=== PATIENT | female | born 1995 | race Caucasian/White ===

== ENCOUNTER 2021-09-12 15:24 | Observation (INO) ==
[2021-09-12] MEDS ORDERED: LACTATED RINGERS 1,000 ML IV SCH (17:00)
[2021-09-12] MEDS ORDERED: PROMETHAZINE 25 MG/1 ML VIAL IM PRN (17:13)
[2021-09-12 17:41] LABS: Basophils % 0.4 % (0.0-0.8); Eosinophils % 0.7 % (0.00-10.9); Hematocrit 38.4 VOL% (35.7-47.0); Hemoglobin 13.7 GM/DL (12.0-16.0); Immature Granulocytes % 0.9 %; Immature Granulocytes Absolute 0.05 #; Lymphocytes # 1.1 10*3/uL (1.4-4.0); Lymphocytes % 19.9 % (21.3-54.2); Mean Corpuscular HGB Conc 35.7 GM/DL (32-36); Mean Corpuscular Volume 86.7 FL (87-102); Mean Platelet Volume 9.9 FL (9.6-12.0); Monocytes % 6.3 % (1.7-12.7); Neutrophils % 71.8 % (38.7-73.9); Platelet Count 208 T/CUMM (130-400); Red Blood Count 4.43 MC/CUMM (3.8-5.5); Red Cell Distribution Width 11.1 % (9.3-17.3); White Blood Count 5.7 T/CUMM (4-12)
[2021-09-12] MEDS: METOCLOPRAMIDE 10 MG/2 ML VIAL IV SCH (17:49)
[2021-09-12 18:00] LABS: Albumin 3.8 G/DL (3.4-5.0); Bilirubin,Total 1.1 MG/DL (0.20-1.00); Osmolality,Calculated 266.1 MOS/KG (273-304); Potassium 3.6 MMOL/L (3.5-5.1)
[2021-09-12] MEDS ORDERED: MULTIVITAMIN IV ONE (18:00)
[2021-09-12] MEDS ORDERED: LACTATED RINGERS IV ONE (18:00)
[2021-09-12] MEDS ORDERED: DEXTROSE IV ONE (18:00)
[2021-09-13] MEDS ORDERED: SCOPOLAMINE 1.5 MG PATCH TRANSDERM SCH (04:00)
[2021-09-13] MEDS: METOCLOPRAMIDE 10 MG/2 ML VIAL IV SCH (07:47)
[2021-09-13 12:09] VITALS: BP 118/63
== END 2021-09-13 10:30 | disposition home or self-care (01) ==
LOC: N.OB
PROVIDERS: ADMIT Obstetrics & Gynecology; ATTEND Obstetrics & Gynecology

== ENCOUNTER → 2021-09-18 10:30 | Observation (INO) ==
[2021-09-18 08:41] VITALS: BP 117/52
[~2021-09-18 10:30] MED LIST: ACETAMINOPHEN 325 MG TABLET PO PRN; BISACODYL 10 MG SUPP RECTAL PRN; DOCUSATE SODIUM 100 MG CAPSULE PO SCH; HYDROCORTISONE 2.5% RECTAL CREAM 30 GM TUBE TOP PRN; LACTATED RINGERS 1,000 ML IV SCH; WITCH HAZEL PADS 100/JAR TOP PRN
== END | disposition home or self-care (01) ==
LOC: N.OB
PROVIDERS: ADMIT Obstetrics & Gynecology; ATTEND Obstetrics & Gynecology

== ENCOUNTER 2021-10-03 13:20 | Observation (INO) ==
[2021-10-03] MEDS ORDERED: LACTATED RINGERS 1,000 ML IV ONE (13:43)
[2021-10-03] MEDS ORDERED: ONDANSETRON 4 MG/2 ML VIAL IV PRN (13:44)
[2021-10-03] MEDS: LACTATED RINGERS 1,000 ML IV SCH ×2 (14:10→15:26)
[2021-10-03 22:49] VITALS: BP 93/49
== END 2021-10-03 20:03 | disposition home or self-care (01) ==
LOC: N.OB
PROVIDERS: ADMIT Obstetrics & Gynecology; ATTEND Obstetrics & Gynecology

== ENCOUNTER 2021-10-10 09:28 | Observation (INO) ==
[2021-10-10] MEDS: ONDANSETRON 4 MG/2 ML VIAL IV PRN ×2 (14:29→20:10)
[2021-10-10] MEDS: DEXTROSE 5% LACTATED RINGERS 1,000 ML IV SCH ×2 (18:16→18:54)
[2021-10-10] MEDS: METOCLOPRAMIDE 10 MG/2 ML VIAL IV SCH ×2 (18:54→23:36)
[2021-10-10] MEDS: PANTOPRAZOLE 40 MG VIAL IV SCH (20:36)
[2021-10-10] MEDS ORDERED: methylPREDNISolone SOD SUC 125 MG/2 ML VIAL IV ONE (21:53)
[2021-10-10] MEDS ORDERED: MULTIVITAMIN IV SCH (22:30)
[2021-10-10] MEDS ORDERED: DEXTROSE IV SCH (22:30)
[2021-10-10] MEDS ORDERED: LACTATED RINGERS IV SCH (22:30)
[2021-10-11] MEDS: ONDANSETRON 4 MG/2 ML VIAL IV PRN ×6 (00:12→21:30)
[2021-10-11] MEDS: METOCLOPRAMIDE 10 MG/2 ML VIAL IV SCH (02:19)
[2021-10-11] MEDS ORDERED: ALUMINUM/MAGNES/SIMETH MAX STR 30 ML UDCUP PO PRN (02:25)
[2021-10-11] MEDS: DEXTROSE 5% LACTATED RINGERS 1,000 ML IV SCH ×3 (02:53→12:10)
[2021-10-11 05:30] LABS: Hematocrit 33.6 VOL% (35.7-47.0); Hemoglobin 12.2 GM/DL (12.0-16.0); Immature Granulocytes % 1.5 %; Immature Granulocytes Absolute 0.05 #; Lymphocytes # 0.5 10*3/uL (1.4-4.0); Lymphocytes % 13.6 % (21.3-54.2); Mean Corpuscular HGB Conc 36.3 GM/DL (32-36); Mean Corpuscular Volume 84.6 FL (87-102); Mean Platelet Volume 10.5 FL (9.6-12.0); Monocytes % 2.7 % (1.7-12.7); Neutrophils % 82.2 % (38.7-73.9); Platelet Count 193 T/CUMM (130-400); Red Blood Count 3.97 MC/CUMM (3.8-5.5); Red Cell Distribution Width 11.3 % (9.3-17.3); White Blood Count 3.4 T/CUMM (4-12)
[2021-10-11 05:38] LABS: Bilirubin,Total 0.7 MG/DL (0.20-1.00); Calcium 8.6 MG/DL (8.5-10.1); Osmolality,Calculated 274.8 MOS/KG (273-304); Potassium 3.2 MMOL/L (3.5-5.1); Total Protein 6.2 G/DL (6.4-8.2)
[2021-10-11] MEDS: POTASSIUM CHLORIDE 20 MEQ TABLET PO PRN ×2 (09:42→14:05)
[2021-10-11] MEDS: PANTOPRAZOLE 40 MG VIAL IV SCH ×2 (09:46→23:07)
[2021-10-11] MEDS: DOCUSATE SODIUM 100 MG CAPSULE PO PRN (13:34)
[2021-10-11] MEDS ORDERED: FAT EMULSION 20% 250 ML IV SCH (14:00)
[2021-10-11] MEDS ORDERED: ZINC/COPPER/MANGANESE/SELENIUM 1 ML, MULTIVITAMIN INJ 10 ML in AMINO ACIDS/DEXT/LYTES 4... IV SCH (17:00)
[2021-10-12] MEDS: ONDANSETRON 4 MG/2 ML VIAL IV PRN ×3 (01:54→12:30)
[2021-10-12] MEDS: PANTOPRAZOLE 40 MG VIAL IV SCH ×2 (07:59)
[2021-10-12] MEDS: DOCUSATE SODIUM 100 MG CAPSULE PO PRN (08:09)
[2021-10-12] MEDS: DEXTROSE 5% LACTATED RINGERS 1,000 ML IV SCH ×3 (08:54→14:42)
[2021-10-12 12:15] VITALS: BP 109/66
== END 2021-10-12 16:00 | disposition home or self-care (01) ==
LOC: N.LDOUT 09:28 → N.OB 09:28
PROVIDERS: ADMIT Obstetrics & Gynecology; ATTEND Obstetrics & Gynecology

== ENCOUNTER 2022-04-09 09:44 | Inpatient (IN) ==
[2022-04-09] MEDS ORDERED: METHYLERGONOVINE 0.2 MG/1 ML AMP IM PRN (09:58)
[2022-04-09] MEDS ORDERED: MEPERIDINE 50 MG/1 ML VIAL IV PRN (09:58)
[2022-04-09] MEDS ORDERED: TRANEXAMIC ACID 1,000 MG in SODIUM CHLORIDE 0.9% 100 ML IV PRN (09:58)
[2022-04-09] MEDS ORDERED: OXYTOCIN/LR 20 UNIT/1,000 ML BAG IV ONE (09:58)
[2022-04-09] MEDS ORDERED: miSOPROStoL 200 MCG TABLET RECTAL PRN (09:58)
[2022-04-09] MEDS ORDERED: CARBOPROST TROMETHAMINE 250 MCG/ML AMP IM PRN (09:58)
[2022-04-09] MEDS ORDERED: ONDANSETRON 4 MG/2 ML VIAL IV PRN (09:58)
[2022-04-09] MEDS: LACTATED RINGERS 1,000 ML IV SCH ×2 (10:29→22:54)
[2022-04-09 10:53] LABS: Basophils % 0.6 % (0.0-0.8); Eosinophils % 0.5 % (0.00-10.9); Hematocrit 46.6 VOL% (35.7-47.0); Hemoglobin 16.1 GM/DL (12.0-16.0); Immature Granulocytes % 5.1 %; Immature Granulocytes Absolute 0.32 #; Lymphocytes # 0.7 10*3/uL (1.4-4.0); Lymphocytes % 10.6 % (21.3-54.2); Mean Corpuscular HGB Conc 34.5 GM/DL (32-36); Mean Corpuscular Volume 85.5 FL (87-102); Mean Platelet Volume 10.8 FL (9.6-12.0); Monocytes # 0.5 10*3/uL (0.11-0.8); Monocytes % 8.3 % (1.7-12.7); Neutrophils % 74.9 % (38.7-73.9); Platelet Count 152 T/CUMM (130-400); Red Blood Count 5.45 MC/CUMM (3.8-5.5); Red Cell Distribution Width 12.7 % (9.3-17.3); White Blood Count 6.3 T/CUMM (4-12)
[2022-04-09 11:29] LABS: Albumin 3.1 G/DL (3.4-5.0); Bilirubin,Total 0.4 MG/DL (0.20-1.00); Calcium 9.1 MG/DL (8.5-10.1); Osmolality,Calculated 271.7 MOS/KG (273-304); Total Protein 7.2 G/DL (6.4-8.2)
[2022-04-09] MEDS ORDERED: OXYTOCIN/LR 20 UNIT/1,000 ML BAG IV SCH ×2 (11:30→23:30)
[2022-04-09] MEDS ORDERED: POTASSIUM CHLORIDE 20 MEQ TABLET PO PRN (11:42)
[2022-04-09 11:53] LABS: Eosinophils 1 % (0-10); Lymphocytes 5 % (20-55); Platelet Estimate Adequate; Total Cells Counted 100
[2022-04-09] MEDS: ACETAMINOPHEN 500 MG TABLET PO PRN (16:28)
[2022-04-09] MEDS ORDERED: PROMETHAZINE 25 MG/1 ML VIAL IM ONE (19:37)
[2022-04-09] MEDS ORDERED: ONDANSETRON 4 MG/2 ML VIAL IV ONE (19:37)
[2022-04-09] MEDS ORDERED: diphenhydrAMINE 50 MG/1 ML VIAL IV PRN ×2 (19:37)
[2022-04-09] MEDS ORDERED: NALOXONE 0.4 MG/ML VIAL IV PRN (19:37)
[2022-04-09] MEDS ORDERED: FAMOTIDINE 20 MG/2 ML VIAL IV ONE (19:37)
[2022-04-09] MEDS ORDERED: CITRIC ACID/SODIUM CITRATE 30 ML UDCUP PO ONE (19:37)
[2022-04-09] MEDS ORDERED: hydrOXYzine HCL 25 MG/1 ML VIAL IM PRN (19:37)
[2022-04-09] MEDS: ePHEDrine 50 MG/ML VIAL IV PRN ×2 (20:33→20:40)
[2022-04-09] MEDS: fentaNYL 2 MCG/ROPIV 0.2% EPID 100 ML EPIDURAL SCH (20:34)
[2022-04-09] MEDS: POTASSIUM CHLORIDE 20 MEQ TABLET PO SCH (21:38)
[2022-04-09 21:44] LABS: Amorphous Crystals,Urine Occasional /HPF (Few); Mucus,Urine Occasional /LPF (Occasional); RBC,Urine 2 /HPF (0-4); Squamous Epithelial Cell,Urine Occasional /HPF (0-10)
[2022-04-09 21:46] LABS: Bilirubin,Urine Negative (Negative); Blood, Urine Negative (Negative); Glucose,Urine (UA) Negative (Negative); Ketones,Urine 15 mg/dL (Negative); Nitrite,Urine Negative (Negative); Protein,Urine Negative (Negative); Urine Appearance Clear (Clear); Urine Color Yellow (Yellow); Urine Specific Gravity 1.015 (1.001-1.035); Urine Urobilinogen 0.2 eU/dL (<2.0)
[2022-04-10] MEDS ORDERED: TRANEXAMIC ACID 1,000 MG/10 ML VIAL ONE (02:51)
[2022-04-10] MEDS ORDERED: miSOPROStoL 200 MCG TABLET ONE (02:51)
[2022-04-10] MEDS ORDERED: METHYLERGONOVINE 0.2 MG/1 ML AMP ONE (02:52)
[2022-04-10] MEDS ORDERED: CARBOPROST TROMETHAMINE 250 MCG/ML AMP IM ONE (02:52)
[2022-04-10] MEDS ORDERED: SODIUM CHLORIDE 0.9% 0 ML IV ONE (02:52)
[2022-04-10] MEDS: fentaNYL 2 MCG/ROPIV 0.2% EPID 100 ML EPIDURAL SCH (03:16)
[2022-04-10] MEDS: ACETAMINOPHEN 500 MG TABLET PO PRN (03:32)
[2022-04-10] MEDS ORDERED: fentaNYL 100 MCG/2 ML VIAL ONE (06:10)
[2022-04-10] MEDS ORDERED: LIDOCAINE 2% 5 ML VIAL ONE (06:10)
[2022-04-10] MEDS ORDERED: oxyCODONE/ACETAMINOPHEN 5-325 MG TABLET PO PRN (08:24)
[2022-04-10] MEDS ORDERED: RHO(D) IMMUNE GLOBULIN 300 MCG SYRINGE IM ONE (08:24)
[2022-04-10] MEDS ORDERED: OXYTOCIN/LR 20 UNIT/1,000 ML BAG IV ONE (08:24)
[2022-04-10] MEDS ORDERED: MEASLES/MUMPS/RUBELLA VACCINE 0.5 ML VIAL SUBCUT ONE (08:24)
[2022-04-10] MEDS ORDERED: ONDANSETRON 4 MG/2 ML VIAL IV PRN (08:24)
[2022-04-10] MEDS ORDERED: BENZOCAINE 20%/MENTHOL 0.5% SPRAY 56 GM CAN TOP PRN (08:24)
[2022-04-10] MEDS ORDERED: WITCH HAZEL PADS 100/JAR TOP PRN (08:24)
[2022-04-10] MEDS ORDERED: LANOLIN 50% CREAM 0.3 OZ TUBE TOP PRN (08:24)
[2022-04-10] MEDS ORDERED: ACETAMINOPHEN 325 MG TABLET PO PRN (08:24)
[2022-04-10] MEDS ORDERED: HYDROCORTISONE 2.5% RECTAL CREAM 30 GM TUBE TOP PRN (08:24)
[2022-04-10] MEDS ORDERED: BISACODYL 10 MG SUPP RECTAL PRN (08:24)
[2022-04-10] MEDS ORDERED: DIPH/TET/ACEL PERT BOOSTER VACCINE 0.5 ML VIAL IM ONE (08:24)
[2022-04-10 08:27] LABS: Cord Arterial Blood HCO3 19.1 MMOL/L
[2022-04-10 08:31] LABS: Cord Venous Blood PCO2 44.3 MMHG; Cord Venous Blood PO2 19.5
[2022-04-10] MEDS: oxyCODONE/ACETAMINOPHEN 5-325 MG TABLET PO PRN ×2 (10:22→20:01)
[2022-04-10] MEDS: IBUPROFEN 800 MG TABLET PO PRN ×3 (10:23→21:58)
[2022-04-10] MEDS: POTASSIUM CHLORIDE 20 MEQ TABLET PO SCH ×2 (15:54→20:33)
[2022-04-10] MEDS: DOCUSATE SODIUM 100 MG CAPSULE PO SCH (20:33)
[2022-04-11 06:06] LABS: Basophils % 0.3 % (0.0-0.8); Eosinophils # 0.1 10*3/uL (0.0-0.87); Hematocrit 27.1 VOL% (35.7-47.0); Hemoglobin 9.2 GM/DL (12.0-16.0); Immature Granulocytes % 3.1 %; Immature Granulocytes Absolute 0.27 #; Lymphocytes # 1.7 10*3/uL (1.4-4.0); Lymphocytes % 19.8 % (21.3-54.2); Mean Corpuscular HGB Conc 33.9 GM/DL (32-36); Mean Corpuscular Volume 88.3 FL (87-102); Mean Platelet Volume 10.8 FL (9.6-12.0); Monocytes # 0.7 10*3/uL (0.11-0.8); Monocytes % 7.8 % (1.7-12.7); Platelet Count 182 T/CUMM (130-400); Red Blood Count 3.07 MC/CUMM (3.8-5.5); Red Cell Distribution Width 12.9 % (9.3-17.3); White Blood Count 8.8 T/CUMM (4-12)
[2022-04-11] MEDS ORDERED: RHO(D) IMMUNE GLOBULIN 300 MCG SYRINGE IM ONE (10:12)
[2022-04-11] MEDS: oxyCODONE/ACETAMINOPHEN 5-325 MG TABLET PO PRN ×2 (11:13→20:53)
[2022-04-11] MEDS: POTASSIUM CHLORIDE 20 MEQ TABLET PO SCH (11:28)
[2022-04-11] MEDS: DOCUSATE SODIUM 100 MG CAPSULE PO SCH (11:28)
[2022-04-11] MEDS: IBUPROFEN 800 MG TABLET PO PRN (17:16)
[2022-04-12] MEDS: DOCUSATE SODIUM 100 MG CAPSULE PO SCH ×2 (00:57→08:10)
[2022-04-12] MEDS: IBUPROFEN 800 MG TABLET PO PRN (01:33)
[2022-04-12] MEDS: POTASSIUM CHLORIDE 20 MEQ TABLET PO SCH ×2 (03:36→08:10)
[2022-04-12] MEDS: oxyCODONE/ACETAMINOPHEN 5-325 MG TABLET PO PRN (08:09)
[2022-04-12 09:37] VITALS: BP 127/72
== END 2022-04-12 12:50 | disposition home or self-care (01) | DRG 807 ==
LOC: N.LD 09:44 → N.OB 04-10 10:32
PROVIDERS: ADMIT Obstetrics & Gynecology; ATTEND Obstetrics & Gynecology